=== PATIENT | male | born 1995 | race American Indian/Alaskan Native ===

== ENCOUNTER 2021-08-28 08:42 | Emergency (ER) | payer OTHER ==
[2021-08-28] MEDS ORDERED: IBUPROFEN 600 MG TAB PO ONE (09:14)
[2021-08-28 09:30] LABS: Basophils # (Auto) 0.1 K/mm3 (0.0-0.1); Basophils % (Auto) 0.6 % (0.0-1.8); Eosinophils % (Auto) 0.1 % (0.0-4.3); Hematocrit 40.2 % (35.5-45.6); Hemoglobin 14.1 gm/dl (11.8-15.2); Lymphocytes # (Auto) 0.8 K/mm3 (1.2-5.4); Lymphocytes % (Auto) 5.9 % (13.4-35.0); Mean Corpuscular HGB Conc 35 % (32-34); Mean Corpuscular Volume 88 fl (84-94); Monocytes # (Auto) 1.1 K/mm3 (0.0-0.8); Monocytes % (Auto) 8.2 % (0.0-7.3); Platelet Count 251 K/mm3 (140-440); Red Blood Count 4.57 M/mm3 (3.65-5.03); Red Cell Distribution Width 13.5 % (13.2-15.2)
--- NOTE | 2021-08-28 09:51 | XRay Report ---
CHEST 2 VIEWS INDICATION / CLINICAL INFORMATION: Fever sweats cough. COMPARISON: None available. FINDINGS: SUPPORT DEVICES: None. HEART / MEDIASTINUM: No significant abnormality. LUNGS / PLEURA: No significant pulmonary or pleural abnormality. No pneumothorax. ADDITIONAL FINDINGS: No significant additional findings. IMPRESSION: 1. No acute findings. Signer Name: Rhina Gomez MD Signed: 08/28/2021 9:47 AM Workstation Name: [id number]
[2021-08-28 09:52] LABS: Alanine Aminotransferase 93 units/L (7-56); Albumin 4.6 g/dL (3.9-5); BUN/Creatinine Ratio 6; Blood Urea Nitrogen 6 mg/dL (9-20); Calcium 9.9 mg/dL (8.4-10.2); Hemolysis Index 3
[2021-08-28] MEDS ORDERED: POTASSIUM CHLORIDE ER 20 MEQ TAB PO ONE (09:56)
[2021-08-28] MEDS ORDERED: SODIUM CHLORIDE 0.9% 1000 ML 1,000 ML IV ONE (09:56)
[2021-08-28] MEDS ORDERED: ONDANSETRON 4 MG/2 ML INJ IV ONE (09:57)
--- NOTE | 2021-08-28 10:00 | Emergency Department Report ---
ED General Adult HPI - General Chief complaint: Sore Throat Stated complaint: THROAT HURTS AND BODY ACHES Time Seen by Provider: 08/28/21 09:11 Source: patient Mode of arrival: Ambulatory Limitations: No Limitations - History of Present Illness Initial comments: The patient was evaluated in the emergency department for symptoms described in the history of present illness. He/she was evaluated in the context of the global COVID-19 pandemic, which necessitated consideration that the patient might be at risk for infection with the virus that causes COVID-19. Institutional protocols and algorithms that pertain to the evaluation of patients at risk for COVID-19 are in a state of rapid change based on information released by regulatory bodies including the CDC and federal and state organizations. These policies and algorithms were followed during the patient's care in the emergency department. Please note that these policies, procedures and recommendations changed on a rapid basis. 26-year-old -[place] male presents to the emergency room complaining of sore throat body aches nausea and vomiting. Patient states that this been going on for 1 week. He reports that he went to urgent care and they started him on antibiotics on Sunday for strep. Patient denies having a strep test was clinically diagnosed. Patient is concerned that he may have Covid states that he did have a test and it came up inconclusive. Patient is not vaccinated for Covid. He denies any past medical history. He has been reported that he has been having fevers chills. His temperature in triage is 102.4 and he was mildly tachycardic at 109. Patient is profusely sweating during our examination. He does admit that he took Tylenol at 8 AM. Onset/Timin -: week(s) Location: mouth (Throat) Severity scale (0 -10): 8 Quality: aching Improves with: none Worsens with: none Associated Symptoms: cough, diaphoresis, fever/chills, nausea/vomiting, weakness, other (Myalgia) Treatments Prior to Arrival: other (Tylenol at 8 AM) - Related Data Previous Rx's Medication Instructions Recorded Last Taken Type Ondansetron [Zofran Odt] 4 mg PO Q8HR PRN #8 tab.rapdis 08/28/21 Unknown Rx Allergies Allergy/AdvReac Type Severity Reaction Status Date / Time No Known Allergies Allergy Unverified 08/28/21 08:57 ED Review of Systems ROS: Stated complaint: THROAT HURTS AND BODY ACHES Other details as noted in HPI Comment: All other systems reviewed and negative ED Past Medical Hx - Past Medical History Previous Medical History?: No - Surgical History Past Surgical History?: No - Social History Smoking Status: Current Every Day Smoker Substance Use Type: Alcohol - Medications Home Medications: Home Medications Medication Instructions Recorded Confirmed Last Taken Type Ondansetron [Zofran Odt] 4 mg PO Q8HR PRN #8 tab.rapdis 08/28/21 Unknown Rx ED Physical Exam - General Limitations: No Limitations General appearance: alert, in no apparent distress - Head Head exam: Present: atraumatic, normocephalic - Eye Eye exam: Present: normal appearance - ENT ENT exam: Present: mucous membranes moist - Expanded ENT Exam Expanded Throat exam: Positive: tonsillar erythema, tonsillomegaly - Neck Neck exam: Present: normal inspection, full ROM - Respiratory Respiratory exam: Present: normal lung sounds bilaterally - Cardiovascular Cardiovascular Exam: Present: tachycardia - GI/Abdominal GI/Abdominal exam: Present: soft. Absent: distended, tenderness - Extremities Exam Extremities exam: Present: normal inspection, full ROM - Back Exam Back exam: Present: normal inspection, full ROM - Neurological Exam Neurological exam: Present: alert, oriented X3, normal gait - Psychiatric Psychiatric exam: Present: normal affect, normal mood - Skin Skin exam: Present: normal color, diaphoretic ED Course Vital Signs 08/28/21 08/28/21 08/28/21 08:56 09:05 09:20 Temperature 102.4 F H Pulse Rate 109 H Respiratory 19 16 Rate Blood Pressure 154/102 Blood Pressure [Right] O2 Sat by Pulse 96 96 Oximetry 08/28/21 08/28/21 09:26 13:01 Temperature 99.3 F 98.7 F Pulse Rate 95 H 72 Respiratory 16 18 Rate Blood Pressure 146/88 Blood Pressure 153/93 [Right] O2 Sat by Pulse 99 100 Oximetry - Reevaluation(s) Reevaluation #1: 08/28/21 13:16 Patient reports he feels much better. He is ready to be discharged ED Medical Decision Making - Lab Data Result diagrams: 08/28/21 09:18 08/28/21 09:18 - Radiology Data Radiology results: report reviewed My Comment(s) Study Comments [facility] [address] [place] [address] XRay Report Signed Patient: MORRIS LUCIA MR#: [id number] : 1995 Acct:[id number] Age/Sex: 26 / M ADM Date: 08/28/21 Loc: ED Attending Dr: Ordering Physician: CHYNA HARRELL Date of Service: 08/28/21 Procedure(s): XR chest routine 2V Accession Number(s): [id number] cc: CHYNA HARRELL Fluoro Time In Minutes: CHEST 2 VIEWS INDICATION / CLINICAL INFORMATION: Fever sweats cough. COMPARISON: None available. FINDINGS: SUPPORT DEVICES: None. HEART / MEDIASTINUM: No significant abnormality. LUNGS / PLEURA: No significant pulmonary or pleural abnormality. No pneumothorax. ADDITIONAL FINDINGS: No significant additional findings. IMPRESSION: 1. No acute findings. Signer Name: Rhina Gomez MD Signed: 08/28/2021 9:47 AM Workstation Name: [email or web address] Transcribed By: JR Dictated By: Rhina Gomez MD Electronically Authenticated By: Rhina Gomez MD Signed Date/Time: 08/28/21946 DD/ 5 TD/TT: - Medical Decision Making 26-year-old -[place] male presents to the emergency room complaining of sore throat body aches nausea and vomiting. Patient states that this been going on for 1 week. He reports that he went to urgent care and they started him on antibiotics on Sunday for strep. Patient denies having a strep test was clinically diagnosed. Patient is concerned that he may have Covid states that he did have a test and it came up inconclusive. Patient is not vaccinated for Covid. He denies any past medical history. He has been reported that he has been having fevers chills. His temperature in triage is 102.4 and he was mildly tachycardic at 109. Patient is profusely sweating during our examination. He does admit that he took Tylenol at 8 AM. Rapid strep, CBC CBC mildly elevated WBCs of 13.7,potassium stat 3.3, LFTs mildly elevated. K. Dur ordered 40 mEq p.o., IV normal saline 1 L been ordered IV Zofran 4 mg has been ordered. Ibuprofen 600 mg have been ordered. Critical care attestation.: If time is entered above; I have spent that time in minutes in the direct care of this critically ill patient, excluding procedure time. ED Disposition Clinical Impression: Suspected COVID-19 virus infection Disposition: HOME / SELF CARE / HOMELESS Is pt being admited?: No Does the pt Need Aspirin: No Condition: Stable Instructions: COVID-19 Frequently Asked Questions, COVID-19: How to Protect Yourself and Others - CDC, Prevent the Spread of COVID-19 if You Are Sick - [facility] Additional Instructions: Your symptoms appear most consistent with a nonspecific viral syndrome. However, given this current pandemic, COVID-19 is in the differential of possibilities. I do recommend outpatient Covid 19 testing. In the meantime, isolate/quarantine yourself and stay away from anyone who is elderly, immunocompromised or chronically ill. You can use ibuprofen every 6-8 hours and Tylenol every 4-8 hours, using the dosing on the back of the bottle, as needed for any fever or body aches. Return to the emergency department with any worsening of your symptoms, development of chest pain or shortness of breath, or with any acute distress. Strep test is negative. Chest x-ray is negative for pneumonia. Your potassium is a little low so I like for you to increase your potassium intake which she can do with eating oranges drinking orange juice papaya. Given you a prescription for the Zofran for the nausea and vomiting. I have strongly in encourage you to get tested for Covid HIV syphilis. Increase your fluid intake advance your diet as tolerated. Prescriptions: Ondansetron [Zofran Odt] 4 mg PO Q8HR PRN #8 tab.rapdis PRN Reason: Nausea And Vomiting Referrals: PRIMARY CARE, [Primary Care Provider] - 3-5 Days [facility] [Outside] - 3-5 Days [facility] [Outside] - 3-5 Days [facility] [Outside] - 3-5 Days [facility] [Provider Group] - 3-5 Days Forms: Work/School Release Form(ED)
[2021-08-28 13:02] VITALS: BP 153/93
== END 2021-08-28 13:11 | disposition home or self-care (01) ==
LOC: ED 08:42
DX: J02.9 Acute pharyngitis, unspecified (principal); M54.2 Cervicalgia; Z20.822 Contact with and (suspected) exposure to COVID-19
CPT/HCPCS: 36415; 71046; 80053; 85025; 87116; 87430; 96361; 96374; 99284; J2405; J7030